=== PATIENT | male | born 1995 | race Caucasian/White ===

== ENCOUNTER 2017-01-24 09:18 | Emergency (ER) | payer SELFPAY ==
[2017-01-24] MEDS ORDERED: KETOROLAC TROMETHAMINE 60 MG/2 ML VIAL IM ONE (10:36)
--- NOTE | 2017-01-24 10:37 | ERNOTE ---
ENT HPI Time Seen by Provider: 01/24/17 10:33 Source: patient Exam Limitations: no limitations - Immun/Allergies/Home Medications Immunizations: IMMUNIZATION HX Immunizations Up to Date Yes History of Influenza Vaccine No Hx Pneumococcal Vaccination No Allergies/Adverse Reactions: Allergies Allergy/AdvReac Type Severity Reaction Status Date / Time No Known Allergies Allergy Verified 01/24/17 09:51 Home Medications: HOME MEDICATIONS Ibuprofen [Motrin] 800 mg PO TID PRN #30 tablet 01/24/17 [Last Taken Unknown] Penicillin V Potassium 500 mg PO QID #40 tablet 01/24/17 [Last Taken Unknown] - History of Present Illness Narrative: Patient presents to the emergency room for severe tooth pain which he has had for approximately one year. He states the pain is too much to bear and he is unable to go to work. He states that he will be going to see a dentist today in [place]. Review of Systems - Review of Systems Constitutional: Present: no symptoms reported EYE: Present: no symptoms reported ENT: Present: See HPI Respiratory: Present: no symptoms reported Cardiology: Present: no symptoms reported Gastrointestinal/Abdominal: Present: no symptoms reported Genitourinary: Present: no symptoms reported Musculoskeletal: Present: no symptoms reported Skin: Present: no symptoms reported - Patient's Past Medical History Patient History - Medical: No pertinent hx Patient History - Cardiac/Respiratory: No pertinent hx Patient History - Cancer: No Hx of Cancer Patient History - Surgical Procedures: No surgical history Patient History - Other: None - Social History Living Situations: home Abuse History: No History of abuse Psych History: No pertinent hx Alcohol Use: none Drug Use: none - Immunizations Immunizations Up to Date: Yes Hx Pneumococcal Vaccination: No History of Influenza Vaccine: No Physical Exam - Physical Exam General Appearance: Present: wd/wn, alert, no apparent distress Head Exam: Present: normal inspection, no evidence of injury Ears, Nose, Throat: Present: normal pharynx, other - there appears to be a fracture of tooth #2 with the remaining portion down to the gingival margin, the gingiva itself is swollen and hyperemic. No open lesions are noted. Respiratory: Present: no respiratory distress, normal breath sounds, no accessory muscle use, chest nontender, lungs clear Cardiovascular/Chest: Present: regular rate, rhythm, no murmur, normal peripheral pulses ED Progress - Vital Signs Patient's Vital Signs:: I have reviewed the patient's vital signs. Vital Signs: Vital Signs 01/24/17 09:47 Temperature 36.6 C Pulse Rate 65 Respiratory 12 Rate Blood Pressure 158/95 O2 Sat by Pulse 99 Oximetry - Progress/Reassessment Chief Complaint: Dental Problem Plan - Plan Plan: Patient has very poor dentition Departure Clinical Impression: Tooth ache - Departure Disposition: Home self-care Condition: Fair Instructions: Dental Care and Dentist Visits Referrals: Ever Dobson MD [Primary Care Provider] - Prescriptions: Ibuprofen [Motrin] 800 mg PO TID PRN #30 tablet PRN Reason: Pain Penicillin V Potassium 500 mg PO QID #40 tablet
[2017-01-24 10:44] VITALS: BP 152/89
== END 2017-01-24 10:48 | disposition home or self-care (01) ==
LOC: ER 09:18
DX: K08.89 Other specified disorders of teeth and supporting structures (principal)